=== PATIENT | female | born 1995 | race Caucasian/White ===

== ENCOUNTER 2016-11-24 19:43 | Emergency (ER) | payer MEDICAID, OTHER ==
--- NOTE | 2016-11-24 20:10 | ERPHSYRPT ---
- History of Present Illness Time Seen by Provider: 11/24/16 19:59 Source: patient Exam Limitations: no limitations Physician History: patient was jumping on trampoline when she fell injuring her left ankle/foot. Patient complains of pain, swelling and difficulty bearing weight. Denies any numbness or tingling to area. Denies any other injuries. Method of Injury: fell Occurred: hours ago (3-4) Quality: constant, throbbing Severity of Pain-Max: moderate Severity of Pain-Current: moderate Lower Extremities Pain: foot: left, ankle: left Modifying Factors: Improves With: immobilization (improve), movement (worsen) Associated Symptoms: popping sensation, No fainted Allergies/Adverse Reactions: No Known Drug Allergies Allergy (Verified 10/17/14 17:24) Home Medications: Vits W-Ca,Fe,FA(<1Mg) [] 1 tab PO DAILY 10/11/14 [History] Hx Tetanus, Diphtheria Vaccination/Date Given: Yes Hx Influenza Vaccination/Date Given: Yes Hx Pneumococcal Vaccination/Date Given: No - Review of Systems Constitutional: No Fever, No Chills Eyes: No Symptoms Ears, Nose, & Throat: No Symptoms Respiratory: No Cough, No Dyspnea Cardiac: No Chest Pain, No Edema, No Syncope Abdominal/Gastrointestinal: No Abdominal Pain, No Nausea, No Vomiting, No Diarrhea Genitourinary Symptoms: No Dysuria Musculoskeletal: Fall, Joint Pain, Joint Swelling, No Back Pain, No Neck Pain Skin: No Rash Neurological: No Dizziness, No Focal Weakness, No Sensory Changes Psychological: No Symptoms Endocrine: No Symptoms All Other Systems: Reviewed and Negative - Past Medical History Pertinent Past Medical History: Yes Neurological History: No Pertinent History ENT History: No Pertinent History Cardiac History: No Pertinent History Respiratory History: Asthma Endocrine Medical History: No Pertinent History Musculoskeletal History: No Pertinent History GI Medical History: No Pertinent History History: No Pertinent History Psycho-Social History: No Pertinent History Female Reproductive Disorders: No Pertinent History - Past Surgical History Past Surgical History: Yes Neuro Surgical History: No Pertinent History Cardiac: No Pertinent History Respiratory: No Pertinent History Gastrointestinal: No Pertinent History Genitourinary: No Pertinent History Female Surgical History: No Pertinent History Other Surgical History: tonsilectomy, finger surgery - Social History Smoking Status: Current every day smoker How long have you smoked: 7 yrs Exposure to second hand smoke: No Drug Use: none Patient Lives Alone: No - Female History Hx Now: No - Physical Exam General Appearance: alert Eyes, Ears, Nose, Throat Exam: moist mucous membranes Neck Exam: non-tender, supple Cardiovascular/Respiratory Exam: chest non-tender, normal breath sounds, regular rate/rhythm, no respiratory distress Gastrointestinal/Abdominal Exam: non-tender, guarding Back Exam: normal inspection, No vertebral tenderness Ankle Exam: left ankle: limited range of motion, pain, soft tissue tenderness, swelling Foot Exam: left foot: bone tenderness, soft tissue tenderness (top of foot), swelling (top of foot) Neuro/Tendon Exam: normal sensation, normal motor functions Mental Status Exam: alert, oriented x 3, cooperative Skin Exam: normal color, warm, dry Ordered Tests: Active Orders 24 hr Category Date Time Status ANKLE (3 VIEWS) Stat Exams 11/24/16 19:55 Taken FOOT (MINIMUM 3 VIEWS) Stat Exams 11/24/16 19:54 Taken Medication Summary Discontinued Medications Generic Name Dose Route Start Last Admin Trade Name Freq PRN Reason Stop Dose Admin Ketorolac Tromethamine 60 mg 11/24/16 20:25 Toradol 30 Mg Injection IM 11/24/16 20:26 STAT ONE - Progress Progress: improved Progress Note: 11/24/16 20:29 Given Toradol for pain - Departure Time of Disposition: 20:29 Departure Disposition: Home, In-patient Admission, Extended Care Facility Clinical Impression: Left ankle sprain, Sprain of left foot Clinical Impression: (Ruled Out): Right foot sprain, Right ankle sprain Condition: Stable Critical Care Time: No Instructions: Contusion, Ankle Sprain Additional Instructions: Rest, ice, elevate and decrease weight bearing for next 2-3 days Motrin 600mg every 6-8 hrs for swelling/pain RX: Ultram Return for worse pain, swelling, numbness or any problems Forms: Work/School Release Form Prescriptions: Tramadol HCl 50 mg [Ultram 50 mg] 50 mg PO Q6-8HPRN PRN #15 tablet PRN Reason: Pain
[2016-11-24] MEDS ORDERED: TORAdol 30 mg Injection IM ONE (20:25)
[2016-11-24 20:29] VITALS: BP 122/80; PULSE 84; O2SAT 99
[2016-11-24] MEDS ORDERED: TORAdol 30 mg Injection ONE (20:33)
--- NOTE | 2016-11-24 20:48 | XRAY ---
Indication: Pain and swelling following twisting injury. Comparison: None 3 views of the left ankle demonstrates mild anterior lateral soft tissue swelling. No other bony, articular, or soft tissue abnormalities.
--- NOTE | 2016-11-24 20:50 | XRAY ---
Indication: Pain and swelling following twisting injury. Comparison: None 3 nonweightbearing views of the left foot demonstrates mild midfoot anterior lateral soft tissue swelling. No other bony, articular, or soft tissue abnormalities.
== END 2016-11-24 20:52 | disposition home or self-care (01) ==
LOC: ED 19:43
DX: S93.402A Sprain of unspecified ligament of left ankle, initial encounter (principal); S93.401A Sprain of unspecified ligament of right ankle, initial encounter; S93.602A Unspecified sprain of left foot, initial encounter; S93.601A Unspecified sprain of right foot, initial encounter; Y93.44 Activity, trampolining
CPT/HCPCS: 73610; 73630; 96372; 99283; 99284; J1885

== ENCOUNTER 2017-04-15 00:22 | Emergency (ER) | payer OTHER ==
[2017-04-15 00:44] VITALS: BP 129/79
[2017-04-15] MEDS ORDERED: BACTRIM DS TABLET PO ONE ×2 (00:47→01:00)
[2017-04-15] MEDS ORDERED: NORCO 5/325 MG PO ONE (00:47)
[2017-04-15] MEDS ORDERED: BACIGUENT PACKET TP ONE (00:47)
[2017-04-15] MEDS ORDERED: Adacel Vial IM ONE ×2 (00:47→01:01)
--- NOTE | 2017-04-15 00:53 | ERPHSYRPT ---
- History of Present Illness Time Seen by Provider: 04/15/17 00:46 Source: patient Exam Limitations: no limitations Patient Subjective Stated Complaint: PER PATIENT OUT WALKING BAREFOOT THIS MORNING AND STEPPED ON A BOARD FULL OF RUSTYNAILS, MULT PUNCTURE WOUNDS TO THE SOLES OF BOTH FEET. C/O PAIN WITH AMBULATION Triage Nursing Assessment: BOTH FEET PLACED IN BETADINE SOAK, SEVERAL MINOR PUNCTURE WOUNDS NOTED TO THE SOLES OF FEET. Physician History: This is a 21-year-old white female she arrives with complaint of pain on the bottom of her feet overlying the metatarsal phalangeal joints bilaterally and is having pain with walking since yesterday morning.. According to the patient she was walking outside yesterday morning and she apparently stepped on a pile of nails with both feet. She has several very small difficult to see the puncture wounds overlying the metatarsal phalangeal joints bilateral feet she states these areas are quite tender with palpation. She is not sure if her tetanus is up-to-date and she is worried about an infection. Past medical history is positive for asthma past surgical history includes tonsillectomy and adenoidectomy and finger surgery. Method of Injury: other (patient stepped outside barefoot onto nails) Lower Extremities Pain: ankle: bilateral Modifying Factors: Improves With: other (Pain with walking) Associated Symptoms: other (Pain plantar surface of foot bilaterally with walking) Allergies/Adverse Reactions: No Known Drug Allergies Allergy (Verified 10/17/14 17:24) Home Medications: Vits W-Ca,Fe,FA(<1Mg) [] 1 tab PO DAILY 10/11/14 [History] Hx Tetanus, Diphtheria Vaccination/Date Given: Yes Hx Influenza Vaccination/Date Given: Yes Hx Pneumococcal Vaccination/Date Given: No Immunizations Up to Date: Yes ("I THINK SO") - Review of Systems Constitutional: No Fever, No Chills Eyes: No Symptoms Ears, Nose, & Throat: No Symptoms Respiratory: No Symptoms Cardiac: No Chest Pain, No Edema, No Syncope Abdominal/Gastrointestinal: No Abdominal Pain, No Nausea, No Vomiting, No Diarrhea Genitourinary Symptoms: No Dysuria Musculoskeletal: Other (Pain with walking plantar surface both feet overlying metatarsal phalangeal joints) Skin: Other (several very small puncture wounds both feet over metatarsal phalangeal joint plantar surface.) Neurological: No Dizziness, No Focal Weakness, No Sensory Changes Psychological: No Symptoms Endocrine: No Symptoms All Other Systems: Reviewed and Negative - Past Medical History Pertinent Past Medical History: No (NONE) Neurological History: No Pertinent History ENT History: No Pertinent History Cardiac History: No Pertinent History Respiratory History: Asthma Endocrine Medical History: No Pertinent History Musculoskeletal History: No Pertinent History GI Medical History: No Pertinent History History: No Pertinent History Psycho-Social History: No Pertinent History Female Reproductive Disorders: No Pertinent History - Past Surgical History Past Surgical History: No (NONE) Neuro Surgical History: No Pertinent History Cardiac: No Pertinent History Respiratory: No Pertinent History Gastrointestinal: No Pertinent History Genitourinary: No Pertinent History Female Surgical History: No Pertinent History Other Surgical History: tonsilectomy, finger surgery - Social History Smoking Status: Never smoker How long have you smoked: 7 yrs Exposure to second hand smoke: No Drug Use: none Patient Lives Alone: No (FAMILY) - Female History Hx Last Menstrual Period: TODAY Hx Now: No - Nursing Vital Signs Nursing Vital Signs: Initial Vital Signs Temperature 98.2 F Temperature Source Oral Pulse Rate 90 Respiratory Rate 12 Blood Pressure [Right Arm] 129/79 Pain Intensity 5 - Physical Exam General Appearance: mild distress Eyes, Ears, Nose, Throat Exam: moist mucous membranes Neck Exam: non-tender, supple Cardiovascular/Respiratory Exam: chest non-tender, normal breath sounds, regular rate/rhythm, no respiratory distress Gastrointestinal/Abdominal Exam: non-tender, guarding Back Exam: normal inspection, No vertebral tenderness Hips Exam: bilateral: non-tender, normal inspection, normal range of motion, no evidence of injury Legs Exam: bilateral leg: non-tender, normal inspection, normal range of motion , no evidence of injury Knees Exam: bilateral knee: non-tender, normal inspection, normal range of motion, no evidence of injury Ankle Exam: bilateral ankle: non-tender, normal inspection, normal range of motion, no evidence of injury Foot Exam: bilateral foot: normal range of motion, other (several small less than 1 mm puncture wounds bilateral feet plantar surface overlying metatarsal phalangeal joints.) DTR - Lower Extremities Exam: ankle (R): 2+, ankle (L): 2+ Neuro/Tendon Exam: normal sensation, normal motor functions Mental Status Exam: alert, oriented x 3, cooperative Skin Exam: other (several less than 1 mm puncture wounds overlying plantar surface both feet at level of metatarsal phalangeal joints.) SpO2 Interpretation: normal (99%) SpO2: 99 Oxygen Delivery: Room Air - Course Nursing assessment & vital signs reviewed: Yes Ordered Tests: Active Orders 24 hr Category Date Time Status Wound Care STAT Care 04/15/17 00:47 Active Medication Summary Generic Name Dose Route Start Last Admin Trade Name Savannah PRN Reason Stop Dose Admin Hydrocodone Bitart/Acetaminophen 2 tab 04/15/17 00:47 Hollis 5/325 Mg PO 04/15/17 00:48 SENT HOME W/ PATIENT ONE Bacitracin 0.9 gm 04/15/17 00:47 Baciguent Packet TP 04/15/17 00:48 STAT ONE Diphtheria/Tetanus/Acell Pertussis 0.5 ml 04/15/17 00:47 Adacel Vial IM 04/15/17 00:48 .ONCE ONE Trimethoprim/Sulfamethoxazole 1 tab 04/15/17 00:47 Bactrim Ds Tablet PO 04/15/17 00:48 STAT ONE - Progress Progress: improved Progress Note: 04/15/17 00:55 21-year-old white female arrives with complaint of pain on the bottom of both feet after walking outside barefoot yesterday morning and stepping on nails. She has some very small less than 1 mm puncture wounds on plantar surface both feet overlying the metatarsal phalangeal joint. She has full range of motion to both feet good capillary refill to all toes sensation intact to all toes dorsal pedal posterior tibial pulses intact and symmetrical 2 over 4. Patient's nurse has cleaned the area and soak feet in Betadine Will have them apply bacitracin Will have them apply a gauze padding proximal to and distal to the areas involved. Will go ahead and place patient on Bactrim DS one orally twice a day for 10 days. Will update patient's tetanus status. Patient states that her feet are very painful Will go ahead and write for a small amount of Hollis for the patient. - Departure Time of Disposition: 00:57 Departure Disposition: Home Clinical Impression: puncture wounds bilateral feet Condition: Fair Critical Care Time: No Additional Instructions: Return home. Clean area and apply bacitracin several times a day. Hollis 5/325 #8 one orally every 4-6 hours as needed for pain. you may alternatively take Tylenol as needed for pain. Follow-up with your family doctor if signs of infection or problems. Return for acute distress or for severe symptoms. Prescriptions: Hydrocodone/Acetaminophen [Hollis 5-325 Tablet] 1 tab PO Q4-6HPRN PRN #8 tablet PRN Reason: Pain
[2017-04-15] MEDS ORDERED: BACIGUENT PACKET ONE (01:00)
[2017-04-15] MEDS ORDERED: NORCO 5/325 MG ONE (01:00)
[2017-04-15 02:01] VITALS: PULSE 85; O2SAT 100
== END 2017-04-15 01:30 | disposition home or self-care (01) ==
LOC: ED 00:22
DX: S91.332A Puncture wound without foreign body, left foot, initial encounter (principal); S91.331A Puncture wound without foreign body, right foot, initial encounter; W45.0XXA Nail entering through skin, initial encounter; Y93.01 Activity, walking, marching and hiking
CPT/HCPCS: 90471; 90715; 99283; A9270-GY

== ENCOUNTER 2017-10-05 13:23 | Emergency (ER) | payer MEDICAID, OTHER, SELFPAY ==
--- NOTE | 2017-10-05 13:56 | ERPHSYRPT ---
- History of Present Illness Time Seen by Provider: 10/05/17 13:46 Source: patient Exam Limitations: no limitations Physician History: The patient is a 22-year-old female with a friend complaining of a cough, sore throat, chills, and body aches for 3 days. She doesn't remember getting an influenza vaccination this year. She has been taking Tylenol without relief. She denies vomiting. She wants a work excuse for tonight. Her past medical history is unremarkable. Timing/Duration: day(s) (3) Cough Quality/Degree: dry cough Possible Cause: no prior episodes Modifying Factors: Improves With: coughing Associated Symptoms: chills, cough, muscle aches, nasal drainage, sore throat Allergies/Adverse Reactions: No Known Drug Allergies Allergy (Verified 10/05/17 13:35) Hx Tetanus, Diphtheria Vaccination/Date Given: Yes Hx Influenza Vaccination/Date Given: Yes Hx Pneumococcal Vaccination/Date Given: No - Review of Systems Constitutional: Chills Eyes: No Symptoms Ears, Nose, & Throat: Nose Congestion, Nose Discharge, Throat Pain, No Ear Pain Respiratory: Cough Cardiac: No Chest Pain, No Edema, No Syncope Abdominal/Gastrointestinal: No Abdominal Pain, No Nausea, No Vomiting, No Diarrhea Genitourinary Symptoms: No Dysuria Musculoskeletal: Myalgias, No Back Pain, No Neck Pain Skin: No Rash Neurological: No Dizziness, No Focal Weakness, No Sensory Changes Psychological: No Symptoms Endocrine: No Symptoms Hematologic/Lymphatic: No Symptoms Immunological/Allergic: No Symptoms All Other Systems: Reviewed and Negative - Past Medical History Pertinent Past Medical History: No (NONE) Neurological History: No Pertinent History ENT History: No Pertinent History Cardiac History: No Pertinent History Respiratory History: Asthma Endocrine Medical History: No Pertinent History Musculoskeletal History: No Pertinent History GI Medical History: No Pertinent History History: No Pertinent History Psycho-Social History: No Pertinent History Female Reproductive Disorders: No Pertinent History - Past Surgical History Past Surgical History: No (NONE) Neuro Surgical History: No Pertinent History Cardiac: No Pertinent History Respiratory: No Pertinent History Gastrointestinal: No Pertinent History Genitourinary: No Pertinent History Female Surgical History: No Pertinent History Other Surgical History: tonsilectomy, finger surgery - Social History Smoking Status: Never smoker How long have you smoked: 7 yrs Exposure to second hand smoke: No Drug Use: none Patient Lives Alone: No (FAMILY) - Nursing Vital Signs Nursing Vital Signs: Initial Vital Signs Temperature 98.9 F 10/05/17 13:29 Pulse Rate 106 H 10/05/17 13:29 Respiratory Rate 16 10/05/17 13:29 Blood Pressure 130/61 10/05/17 13:29 O2 Sat by Pulse Oximetry 97 10/05/17 13:29 Pain Scale Pain Intensity 10 - Physical Exam General Appearance: no apparent distress, alert Eye Exam: PERRL/EOMI, eyes nml inspection Ears, Nose, Throat Exam: TMs normal, pharynx normal Neck Exam: normal inspection, non-tender, supple, full range of motion Respiratory Exam: normal breath sounds, lungs clear, No respiratory distress Cardiovascular Exam: regular rate/rhythm, normal heart sounds Gastrointestinal/Abdomen Exam: soft, No tenderness Pelvic Exam: not done Rectal Exam: not done Back Exam: normal inspection, No CVA tenderness, No vertebral tenderness Extremity Exam: normal inspection, normal range of motion Neurologic Exam: alert, oriented x 3, cooperative, normal mood/affect, sensation nml, No motor deficits Skin Exam: normal color, warm, dry, No rash Lymphatic Exam: No adenopathy SpO2 Interpretation: normal - Radiology Exams Chest X-ray Interpretation: Interpreted by me, Negative (comp CXR 08/31/10.) Ordered Tests: Active Orders 24 hr Category Date Time Status CHEST 2 VIEWS (PA AND LAT) Stat Exams 10/05/17 13:56 Taken CULTURE, THROAT Stat Lab 10/05/17 14:10 Received STREP SCREEN-BETA A Stat Lab 10/05/17 14:10 Completed Medication Summary Discontinued Medications Generic Name Dose Route Start Last Admin Trade Name Savannah PRN Reason Stop Dose Admin Ketorolac Tromethamine 60 mg 10/05/17 13:57 10/05/17 14:02 Toradol 30 Mg Injection IM 10/05/17 13:58 60 mg STAT ONE Administration Ketorolac Tromethamine Confirm 10/05/17 14:01 Toradol 30 Mg Injection Administered 10/05/17 14:02 Dose 60 mg .ROUTE .STK-MED ONE Lab/Rad Data: Laboratory Results 10/05/17 Range/Units 14:10 Streptococcus Screen NEGATIVE (Negative) - Departure Time of Disposition: 14:32 Departure Disposition: Home Clinical Impression: Influenza Condition: Stable Critical Care Time: No Referrals: NEELAM DUPONT MD [Primary Care Provider] - Additional Instructions: Clinically you have influenza. The strep test and the chest x-ray were negative. You were given Toradol 60 mg by IM injection in the ER. Take Tessalon Perle 100 mg every 8 hours as needed for cough. Take Tylenol and ibuprofen as needed. You were given a work excuse for today. Follow-up as needed. Prescriptions: Benzonatate [Tessalon Perle] 100 mg PO Q8H PRN PRN #12 capsule PRN Reason: Cough
[2017-10-05] MEDS ORDERED: TORAdol 30 mg Injection IM ONE (13:57)
[2017-10-05] MEDS ORDERED: TORAdol 30 mg Injection ONE (14:01)
[2017-10-05 14:55] VITALS: BP 115/68; PULSE 78; O2SAT 99
--- NOTE | 2017-10-05 21:20 | XRAY ---
Indication: Cough and sore throat. Comparison: August 31, 2010. PA/lateral chest again demonstrates normal heart, lungs, and bony thorax.
== END 2017-10-05 14:55 | disposition home or self-care (01) ==
LOC: ED 13:23
DX: J11.1 Influenza due to unidentified influenza virus with other respiratory manifestations (principal)
CPT/HCPCS: 71020; 87070; 87430; 96372; 99284; J1885